=== PATIENT | male | born 1995 | race Caucasian/White ===

== ENCOUNTER 2019-10-08 22:04 | Emergency (ER) | payer SELFPAY ==
[2019-10-08 22:05] VITALS: BP 140/80; PULSE 72; RESP 16; TEMP 36.7; O2SAT 98; BMI 27.0
--- NOTE | 2019-10-08 22:34 | ED.VIS.GEN ---
History of Present Illness Chief Complaint: GI Bleed Detail of Chief Complaint: Right red blood with bowel movement Informant: Patient Onset: Weeks Context: Sudden Onset Timing: Intermittent Quality: Bright red blood Location: Rectum Current Severity: - - Not applicable Maximum Severity: Moderate Worsened by: Bowel movement Relieved by: Nothing Associated Symptoms: No associated symptoms Narrative: Patient is a 24-year-old male who presents with intermittent bright red blood per rectum with bowel movement. He reports history of diarrhea 2+ weeks ago. He denies black or maroon stool. He has no history of inflammatory bowel disorder. He denies orthostatic symptoms. He denies GI symptoms. He denies bruising easily. He does drink a 6 to 12 pack every other weekend. He states he did vape. He does not smoke. Patient denies hematuria. He denies any other urologic symptoms. He is not on an anticoagulant. Prior similar symptoms: No Recent Illness/Hospitalization: No - Past Medical History (1) No significant past medical history Status: Acute Past Medical History - Allergies and Home Meds Allergies/Adverse Reactions: Allergies No Known Allergies Allergy (Verified 10/08/19 22:06) Primary Care Physician: NOT,DEFINED [Primary Care Provider] - Prior records reviewed: No Past Medical History: None Surgical History: no surgical history Lives: With Family Smoking Status: Former smoker Alcohol: Occasional Drugs: None Review of Systems General: Denies: Chills, Fever, Sweats Cardiovascular: Denies: Chest pain, Palpitations Respiratory: Denies: Dyspnea, Dyspnea on exertion Gastrointestinal: Reports: Hematochezia. Denies: Abdominal pain, Nausea, Vomiting, Diarrhea, Melena Genitourinary: Denies: Dysuria, Hematuria, Frequency Musculoskeletal: Denies: Myalgias, Arthralgias, Neck pain, Back pain, Swelling, Extremity Pain, -, - Skin: Denies: Rash, Wounds Neurological: Denies: Weakness, Parasthesia, Numbness Hematologic: Denies: Easy bruising, Easy bleeding Physical Exam Vital Signs/Narrative: Vital Signs Temp Pulse Resp BP Pulse Ox 10/08/19 22:05 98.0 F 72 16 140/80 H 98 Inital Vital Signs reviewed: Yes General: Well nourished, Well developed, No Acute Distress Head: Normocephalic, Atraumatic Eyes: Perrl, EOMI. Negative for: Pale conjunctiva, Scleral icterus ENT: Moist mucous membranes, No rhinorrhea Neck: Supple, Nontender, No lymphadenopathy, No JVD Cardiovascular: Regular rate, Regular rhythm, No murmurs, Normal S1, Normal S2 Respiratory: No distress, CTA bilaterally, Chest nontender Abdomen: Soft, Nontender, Nondistended, Normal bowel sounds Rectal: - - Visible external hemorrhoid with blood noted 5:00 lithotomy position. Stool was brown. Prostate is normal. Back: Nontender, Normal Inspection Extremities: Nontender, No edema Skin: Normal color, No rash Neurological: Alert, Oriented x3, Cranial nerves II-XII grossly intact, Normal Strength, Normal Sensation Psychological: Normal affect, Normal Mood Diagnostic/Tx/Re-eval - Medical Decision Making Patient with bright blood blood. Patient's physical exam is consistent with external hemorrhoid. Patient was informed the cause of his bright red blood with bowel movement is due to an external hemorrhoid. ED Disposition - Plan for ED Patient: Disposition: Home or Assisted Living Diagnosis: External hemorrhoid, bleeding Instructions: Hemorrhoids, RECTAL BLEED, Stable Referrals: NOT,DEFINED [Primary Care Provider] - Steven Noonan MD [STAFF PHYSICIAN] - 10-14 Days if not better
== END 2019-10-08 22:56 | disposition home or self-care (01) ==
LOC: ED 22:44
PROVIDERS: Emergency Provider Emergency Medicine
DX: K64.4 Residual hemorrhoidal skin tags (principal); Z87.891 Personal history of nicotine dependence
CPT/HCPCS: 99282

== ENCOUNTER 2025-10-12 11:18 | Emergency (ER) | payer MEDICAID, SELFPAY ==
[2025-10-12 11:18] VITALS: BP 131/90; PULSE 87; RESP 22; TEMP 36; O2SAT 96; BMI 27.9
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
--- NOTE | 2025-10-12 11:37 | EKG12_ITS ---
Test Reason : Blood Pressure : */* mmHG Vent. Rate : 76 BPM Atrial Rate : 76 BPM P-R Int : 162 ms QRS Dur : 78 ms QT Int : 348 ms P-R-T Axes : 51 15 1 degrees QTcB Int : 391 ms Normal sinus rhythm Normal ECG Confirmed by Fernando Haddad ([id number]), rewrite editor BRIDGETTE RAMIREZ ([id number]) on 10/14/2025 10:05:28 AM Referred By: Confirmed By: Fernando Haddad
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
[2025-10-12] MEDS: 0.9% Normal Saline (1000mL) 1,000 ML 999 ML IV (11:56)
[2025-10-12 12:00] LABS: Hematocrit 43.1 % (40-54); Hemoglobin 15.7 g/dL (13.0-16.5); Immature Granulocytes Count 0.020 X10^3/uL (0.0-0.0); Mean Corp Hgb Conc 36.4 g/dL (32-36); Mean Corpuscular Volume 85.7 fL (80-94); Mean Platelet Vol. 9.0 fl (6.2-12.0); NRBC Flagged by Analyzer 0 % (0-5); Platelet Count 249 K/mm3 (150-450); RBC Distribution Width CV 11.5 % (11.6-14.6); RBC Distribution Width SD 35.8 fl (35.1-43.9); Red Blood Count 5.03 M/mm3 (4.6-6.2); White Blood Count 5.9 K/mm3 (4.4-11.0)
[2025-10-12 12:21] LABS: AST(SGOT) 55 U/L (<=37); Alanine Aminotransfer ALT/SGPT 91 U/L (<=46); Albumin, Serum 4.8 g/dL (3.5-5.0); Alkaline Phosphatase 61 U/L (40-129); Anion Gap 10 (7-18); BUN 11 mg/dL (4-19); BUN/Creat Ratio 12.1 RATIO (10-20); Bilirubin, Direct 0.37 mg/dL (0.00-0.30); Calcium,Total 9.3 mg/dL (7.6-11.0); Carbon Dioxide 24.6 mmol/L (20.0-29.0); Chloride 108 mmol/L (96-106); Estimated Creatinine Clearance 125.43 ml/min (50-250); Globulin 2.6 g/dL (2.2-4.2); Glucose 107 mg/dL (70-99); Potassium 4.4 mmol/L (3.5-5.1)
[2025-10-12 12:25] VITALS: BP 138/77; PULSE 77; RESP 18; O2SAT 98
--- OUTSIDE RECORDS SUMMARY | 2025-10-12 12:55 | XMS RPT_ITS | CCD ---
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 allergy status] Onset: 04-17-2017 04-17-2017 Episodic Results Test Name Value Interpretation Reference Range Facility Emergency Department Summary on 10-09-2019 Emergency Department Summary [facility] Medical Records Department [address] [place] [address] Emergency Department Summary 10/08/19 2234 MR#: [id number] Acct: [id number] Name: EDWARD ADAME Rep #: [id number] : 1995 24 From: Tim Shafer MD PCP: HYUN, DEFINED Status: PRE ER History of Present Illness Chief Complaint: GI Bleed Detail of Chief Complaint: Right red blood with bowel movement Informant: Patient Onset: Weeks Context: Sudden Onset Timing: Intermittent Quality: Bright red blood Location: Rectum Current Severity: - - Not applicable Maximum Severity: Moderate Worsened by: Bowel movement Relieved by: Nothing Associated Symptoms: No associated symptoms Narrative: Patient is a 24-year-old male who presents with intermittent bright red blood per rectum with bowel movement. He reports history of diarrhea 2+ weeks ago. He denies black or maroon stool. He has no history of inflammatory bowel disorder. He denies orthostatic symptoms. He denies GI symptoms. He denies bruising easily. He does drink a 6 to 12 pack every other weekend. He states he did vape. He does not smoke. Patient denies hematuria. He denies any other urologic symptoms. He is not on an anticoagulant. Prior similar symptoms: No Recent Illness/Hospitaliz ation: No - Past Medical History (1) No significant past medical history Status: Acute Past Medical History - Allergies and Home Meds Allergies/Adverse Reactions: Allergies No Known Allergies Allergy (Verified 10/08/19 22:06) Primary Care Physician: NOT,DEFINED [Primary Care Provider] - Prior records reviewed: No Past Medical History: None Surgical History: no surgical history Lives: With Family Smoking Status: Former smoker Alcohol: Occasional Drugs: None Review of Systems General: Denies: Chills, Fever, Sweats Cardiovascular: Denies: Chest pain, Palpitations Respiratory: Denies: Dyspnea, Dyspnea on exertion Gastrointestinal: Reports: Hematochezia. Denies: Abdominal pain, Nausea, Vomiting, Diarrhea, Melena Genitourinary: Denies: Dysuria, Hematuria, Frequency Musculoskeletal: Denies: Myalgias, Arthralgias, Neck pain, Back pain, Swelling, Extremity Pain, -, - Skin: Denies: Rash, Wounds Neurological: Denies: Weakness, Parasthesia, Numbness Hematologic: Denies: Easy bruising, Easy bleeding Physical Exam Vital Signs/Narrative: Vital Signs 10/08/19 22:05 98.0 F 72 16 140/80 H 98 Inital Vital Signs reviewed: Yes General: Well nourished, Well developed, No Acute Distress Head: Normocephalic, Atraumatic Eyes: Perrl, EOMI. Negative for: Pale conjunctiva, Scleral icterus ENT: Moist mucous membranes, No rhinorrhea Neck: Supple, Nontender, No lymphadenopathy, No JVD Cardiovascular: Regular rate, Regular rhythm, No murmurs, Normal S1, Normal S2 Respiratory: No distress, CTA bilaterally, Chest nontender Abdomen: Soft, Nontender, Nondistended, Normal bowel sounds Rectal: - - Visible external hemorrhoid with blood noted 5:00 lithotomy position. Stool was brown. Prostate is normal. Back: Nontender, Normal Inspection Extremities: Nontender, No edema Skin: Normal color, No rash Neurological: Alert, Oriented x3, Cranial nerves II-XII grossly intact, Normal Strength, Normal Sensation Psychological: Normal affect, Normal Mood Diagnostic/Tx/Re-e mina - Medical Decision Making Patient with bright blood blood. Patient's physical exam is consistent with external hemorrhoid. Patient was informed the cause of his bright red blood with bowel movement is due to an external hemorrhoid. ED Disposition - Plan for ED Patient: Disposition: Home or Assisted Living Diagnosis: External hemorrhoid, bleeding Instructions: Hemorrhoids, RECTAL BLEED, Stable Referrals: NOT,DEFINED [Primary Care Provider] - Steven Noonan MD [STAFF PHYSICIAN] - 10-14 Days if not better What to do if you have Problems For any increased pain, shortness of breath, bleeding, nausea or vomiting, chest pain, or any unexpected problems, contact your Primary Care Provider. Call [facility] ([phone]) or report to the closest Emergency Room. Call 911 if necessary. 10/08/192237 Date Tim Shafer MD Cosigner Signature (If Indicated): Date CC: DEFINED NOT Normal [facility] Office Visit: UC: bee string with edemaon 04-17-2017 Documentation of current medications (procedure) Done Invalid Interpretation Code [facility] Work Phone: Documentation of current medications (procedure) T Invalid Interpretation Code [facility] Work Phone: Fall risk assessment No Invalid Interpretation Code [facility] Work Phone: Protein mass conc Done [facility] Work Phone: Protein mass conc T [facility] Work Phone: Tobacco smoking status NHIS Never smoker [facility] Work Phone: Tobacco use [facility]PHS Never smoker Invalid Interpretation Code [facility] Work Phone: Vital Signs Date Time Vital Sign Value Performing Clinician Brandon umana 04-17-2017 16:35-0400 BMI (Body Mass Index) 25.5 kg/m2 Ivory Bradshaw LPN [facility] Work Phone: 04-17-2017 16:35-0400 Body Temperature 98.3 [degF] Ivory Bradshaw LPN [facility] Work Phone: 04-17-2017 16:35-0400 BP Diastolic 74 mm[Hg] Ivory Bradshaw LPN [facility] Work Phone: 04-17-2017 16:35-0400 BP Systolic 116 mm[Hg] Ivory Bradshaw LPN [facility] Work Phone: 04-17-2017 16:35-0400 Height 170.18 cm Ivory Bradshaw LPN [facility] Work Phone: 04-17-2017 16:35-0400 Pulse (Heart Rate) 67 /min Ivory Bradshaw LPN [facility] Work Phone: 04-17-2017 16:35-0400 Respiratory Rate 14 /min Ivory Bradshaw LPN [facility] Work Phone: 04-17-2017 16:35-0400 Weight 73.85 kg Ivory Bradshaw LPN [facility] Work Phone: Procedures Date Procedure Procedure Detail Performing Clinician Start: 04-17-2017 End: 04-17-2017 Ther/proph/diag inj, sc/im Devante WILCOX Work Phone: Plan of Treatment Date Care Activity Detail Author Start: 04-17-2017 End: 04-17-2017 Appointment Appointment [facility] Work Phone: Patient Education ALLERGIES [facility] Work Phone: Summary Purpose Family History No Family History Records Found Advance Directives No Advanced Directives Records Found Additional Source Comments (unrecognized sect ion and content) No Status Records Found INFORMATION SOURCE (unrecogn ized section and content) DATE CREATED AUTHOR 10/10/2019 [facility] FOR RECORDS PERTAINING TO PATIENTS WHO ARE OR HAVE BEEN ENROLLED IN A CHEMICAL DEPENDENCY/SUBSTANCEABUSE PROGRAM, SOME INFORMATION MAY BE OMITTED. This clinical summary was aggregated from multiple sources. Caution should be exercised in using it in the provision of clinical care. This summary normalizes information from multiple sources, and as a consequence, information in this document may materially change the coding, format and clinical context of patient data. In addition, data may be omitted in some cases. CLINICAL DECISIONS SHOULD BE BASED ON THE PRIMARY CLINICAL RECORDS. [facility]. provides no warranty or guarantee of the accuracy or completeness of information in this document.
[2025-10-12 14:05] LABS: Mucous, Urine 0 SEEN /hpf (<or=2+); Red Blood Cells-Urine 0 SEEN /hpf (0-5); Squamous Epithelial Cells - UA 0 SEEN /hpf (0-5)
[2025-10-12 14:08] LABS: Color, Urine Straw (Yellow); Glucose, Dipstick Normal (Normal); Ketone-Dipstick Negative (Negative); Leukocyte Esterase-Dipstick Negative /ul (Negative); Nitrite-Dipstick Negative (Negative); Occult Blood-Urine Negative /ul (Negative); Protein-Dipstick 15 mg/dl (Negative); Specific Gravity, Urine 1.005 (1.002-1.030); Urine Bilirubin Dipstick Negative (Negative)
[2025-10-12 15:20] VITALS: BP 138/77; PULSE 77; RESP 18; TEMP 37.2; O2SAT 98
== END 2025-10-12 15:21 | disposition home or self-care (01) ==
PROVIDERS: Emergency Provider Emergency Medicine; Visit Provider Emergency Medicine
DX: S22.088A Other fracture of T11-T12 vertebra, initial encounter for closed fracture (principal); V49.88XA Car occupant (driver) (passenger) injured in other specified transport accidents, initial encounter; F17.220 Nicotine dependence, chewing tobacco, uncomplicated; F17.290 Nicotine dependence, other tobacco product, uncomplicated
CPT/HCPCS: 71260; 74177; 80048; 80076; 81001; 85025; 93005; 96361; 96374; 96375; 99283; Q9967; A4216; J2405